=== PATIENT | male | born 1990 | race Hispanic/Latino ===

== ENCOUNTER 2020-06-05 23:57 | Emergency (ER) | payer OTHER ==
[~2020-06-05] VITALS: Ht 175.3 cm; Wt 69.5 kg
[2020-06-06] MEDS ORDERED: SALA1TAB PO (00:06)
[2020-06-06] MEDS ORDERED: KETOROLAC 30 MG/ML 1ML VIAL IV ONE (00:30)
[2020-06-06] MEDS ORDERED: diazePAM 10 MG TAB PO ONE (00:30)
[2020-06-06 00:45] LABS: BASO % 0.2 % (0.0-1.0); EOS # 0.1 10^3/uL (0.0-0.5); EOS % 1.6 % (0.0-3.0); HEMATOCRIT 45.1 % (42.0-52.0); HEMOGLOBIN 15.3 g/dl (13.5-17.5); LYMPH # 0.7 10^3/uL (1.5-5.0); LYMPH % 16.6 % (24.0-44.0); MEAN CORPUSCULAR HEMOGLOBIN 29.8 pg (27.0-33.0); MEAN CORPUSCULAR HGB CONC 33.9 g/dl (32.0-36.5); MEAN CORPUSCULAR VOLUME 87.9 fl (80.0-96.0); MONO # 0.3 10^3/uL (0.0-0.8); NEUTROPHILS # 3.3 10^3/uL (1.5-8.5); NEUTROPHILS % 74.1 % (36.0-66.0); PLATELET COUNT, AUTOMATED 247 10^3/uL (150-450); RED BLOOD COUNT 5.13 10^6/uL (4.30-6.10); WHITE BLOOD COUNT 4.4 10^3/uL (4.0-10.0)
[2020-06-06 00:59] LABS: ALBUMIN 3.9 GM/DL (3.2-5.2); BILIRUBIN,DIRECT 0.1 MG/DL (0.0-0.2); BILIRUBIN,TOTAL 0.3 MG/DL (0.2-1.0); TOTAL PROTEIN 7.4 GM/DL (6.4-8.2)
--- NOTE | 2020-06-06 01:19 | REPVR ---
PROCEDURE INFORMATION: Exam: CT Thoracic Spine Without Contrast Exam date and time: 06/06/2020 12:23 AM Age: 29 years old Clinical indication: Pain in thoracic spine; Without myelpathy or radiculopathy; Additional info: Back pain, recent CA TECHNIQUE: Imaging protocol: Computed tomography images of the thoracic spine without contrast. Radiation optimization: All CT scans at this facility use at least one of these dose optimization techniques: automated exposure control; mA and/or kV adjustment per patient size (includes targeted exams where dose is matched to clinical indication); or iterative reconstruction. COMPARISON: No relevant prior studies available. FINDINGS: Vertebrae: Normal spinal curvature, vertebral body heights, and alignment. No spinal fracture or acute subluxation. Discs/Spinal canal/Neural foramina: No significant disc protrusion. No severe spinal canal stenosis. No significant neural foraminal narrowing. Soft tissues: Unremarkable. IMPRESSION: No acute vertebral fracture/subluxation. Electronically signed by: Cuauhtemoc Bazzi On 06/06/2020 01:19:20 AM
--- NOTE | 2020-06-06 01:20 | REPVR ---
PROCEDURE INFORMATION: Exam: CT Lumbar Spine Without Contrast Exam date and time: 06/06/2020 12:23 AM Age: 29 years old Clinical indication: Low back pain; Additional info: Back pain, recent CA TECHNIQUE: Imaging protocol: Computed tomography images of the lumbar spine without contrast. Radiation optimization: All CT scans at this facility use at least one of these dose optimization techniques: automated exposure control; mA and/or kV adjustment per patient size (includes targeted exams where dose is matched to clinical indication); or iterative reconstruction. COMPARISON: No relevant prior studies available. FINDINGS: Vertebrae: Normal spinal curvature, vertebral body heights, and alignment. No spinal fracture or acute subluxation. Discs/Spinal canal/Neural foramina: Mild diffuse degenerative disc space loss with small disc bulge/protrusions causing up to mild foraminal and spinal stenosis greatest at L3-S1. Soft tissues: Unremarkable. IMPRESSION: No acute vertebral fracture/subluxation. Electronically signed by: Cuauhtemoc Bazzi On 06/06/2020 01:20:08 AM
[2020-06-06 01:42] VITALS: BP 121/72
[2020-06-06] MEDS ORDERED: methocarbamoL 750 MG TAB PO ONE (01:45)
[2020-06-06] MEDS ORDERED: ROBA750T4 PO (01:48)
[2020-06-06] MEDS ORDERED: ASPE4PAD TOP (01:48)
[2020-06-06] MEDS ORDERED: NAPR-837 PO (01:48)
[2020-06-06] MEDS ORDERED: ACETAMINOPHEN 500 MG TAB PO ONE (02:00)
== END 2020-06-06 02:32 | disposition home or self-care (01) ==
LOC: M ED 23:57
DX: M51.26 Other intervertebral disc displacement, lumbar region (principal); M48.07 Spinal stenosis, lumbosacral region; M62.830 Muscle spasm of back; I25.2 Old myocardial infarction; I10 Essential (primary) hypertension; Z85.830 Personal history of malignant neoplasm of bone; Z88.0 Allergy status to penicillin; Z79.899 Other long term (current) drug therapy
CPT/HCPCS: 72128; 72131; 80047; 80076; 81001; 83690; 85025; 96374; 99284; J1885

== ENCOUNTER 2020-06-14 11:37 | Emergency (ER) | payer OTHER ==
[~2020-06-14] VITALS: Ht 175.3 cm; Wt 73.4 kg
[~2020-06-14 11:37] MED LIST: ASPE4PAD TOP; NAPR-837 PO; ROBA750T4 PO; SALA1TAB PO
[2020-06-14 13:00] LABS: BASO % 0.3 % (0.0-1.0); EOS % 1.2 % (0.0-3.0); HEMATOCRIT 46.3 % (42.0-52.0); LYMPH # 0.7 10^3/uL (1.5-5.0); LYMPH % 22.8 % (24.0-44.0); MEAN CORPUSCULAR HEMOGLOBIN 30.5 pg (27.0-33.0); MEAN CORPUSCULAR HGB CONC 34.6 g/dl (32.0-36.5); MEAN CORPUSCULAR VOLUME 88.2 fl (80.0-96.0); MONO # 0.4 10^3/uL (0.0-0.8); MONO % 12.3 % (0.0-5.0); NEUTROPHILS % 63.1 % (36.0-66.0); PLATELET COUNT, AUTOMATED 237 10^3/uL (150-450); RED BLOOD COUNT 5.25 10^6/uL (4.30-6.10); WHITE BLOOD COUNT 3.2 10^3/uL (4.0-10.0)
[2020-06-14] MEDS ORDERED: PROHANCE 279.3MG/ML 15ML VIAL As Ordered ONE (14:04)
[2020-06-14] MEDS ORDERED: KETOROLAC 60MG 2ML VIAL IM ONE (15:15)
--- NOTE | 2020-06-14 15:28 | REPVR ---
PROCEDURE INFORMATION: Exam: MR Lumbar Spine Without and With Contrast. Exam date and time: 06/14/2020 2:21 PM Age: 29 years old Clinical indication: Pain and condition or disease; Other: Mandible cancer; Patient HX: Low back pain, HX cancer of the mandible; Additional info: HX mandible cancer, severe lower bacl pain, CT neg TECHNIQUE: Imaging protocol: Multiplanar magnetic resonance images of the lumbar spine without and with intravenous contrast. Contrast material: PROHANCE; Contrast volume: 14 ml; Contrast route: INTRAVENOUS (IV); COMPARISON: CT Spine, lumbar w/o contrast 06/06/2020 12:52 AM FINDINGS: Vertebrae: Unremarkable. Spinal cord: Normal signal in the distal thoracic cord and conus medullaris. No cord compression. L1-L2: No significant disc disease. No significant spinal canal stenosis. No neural foraminal stenosis. A tiny posterior facet joint effusion is present on the left. L2-L3: No significant disc disease. No significant spinal canal stenosis. No neural foraminal stenosis. L3-L4: No significant disc disease. No significant spinal canal stenosis. No neural foraminal stenosis. A tiny posterior facet joint effusion is present on the left. L4-L5: No significant disc disease. No significant spinal canal stenosis. No neural foraminal stenosis. A tiny posterior facet joint effusion is present on the left. L5-S1: No significant disc disease. No significant spinal canal stenosis. No neural foraminal stenosis. Soft tissues: Unremarkable prevertebral and posterior paraspinal soft tissues. IMPRESSION: Tiny posterior facet joint effusions are seen on the left at L1/L2 and at L3-L5. Otherwise, normal lumbar spine. No evidence of soft tissue or bony metastasis. Electronically signed by: Surendra Venegas On 06/14/2020 15:28:26 PM
--- NOTE | 2020-06-14 15:53 | REPVR ---
PROCEDURE INFORMATION: Exam: MR Thoracic Spine Without and With Contrast Exam date and time: 06/14/2020 2:21 PM Age: 29 years old Clinical indication: Pain and condition or disease; Other: Cancer of mandible; Other: Lower back pain; Patient HX: Low back pain. HX mandible cancer; Additional info: HX of bonce cancer, severe tenderness TECHNIQUE: Imaging protocol: Multiplanar magnetic resonance images of the thoracic spine without and with intravenous contrast. Contrast material: PROHANCE; Contrast volume: 14 ml; Contrast route: INTRAVENOUS (IV); COMPARISON: CT Spine,thoracic w/o contrast 06/06/2020 12:52 AM FINDINGS: Vertebrae: The thoracic spinal vertebral bodies appear normal except for the T12 vertebral body which demonstrates low T1 and T2 signal with diffuse homogeneous enhancement of the marrow post IV contrast. Spinal cord: Normal signal. No cord compression. T1-T2: No significant disc disease. No significant spinal canal stenosis. T2-T3: No significant disc disease. No significant spinal canal stenosis. T3-T4: No significant disc disease. No significant spinal canal stenosis. T4-T5: No significant disc disease. No significant spinal canal stenosis. T5-T6: No significant disc disease. No significant spinal canal stenosis. T6-T7: No significant disc disease. No significant spinal canal stenosis. T7-T8: No significant disc disease. No significant spinal canal stenosis. T8-T9: No significant disc disease. No significant spinal canal stenosis. T9-T10: No significant disc disease. No significant spinal canal stenosis. T10-T11: No significant disc disease. No significant spinal canal stenosis. T11-T12: No significant disc disease. No significant spinal canal stenosis. Soft tissues: A small 1.3 x 1.0 cm high T2 signal mass which does not enhance post IV contrast is seen in the mid-upper pole posterior cortex of the left kidney on frame 6 of series 1401, likely a small Bosniak type I simple cyst. IMPRESSION: 1. The thoracic spinal vertebral bodies appear normal except for the T12 vertebral body which demonstrates low T1 and T2 signal with diffuse homogeneous enhancement of the marrow post IV contrast. This could be a benign intraosseous hemangioma. The CT findings of the T12 vertebral body are not completely diagnostic for a hemangioma but could not exclude a developing hemangioma. A neoplasm such as lymphoma is a possibility although the CT findings are not suggestive of a blastic osseous metastasis. I would recommend a nuclear medicine CT PET study for further evaluation. 2. A small 1.3 x 1.0 cm high T2 signal mass which does not enhance post IV contrast is seen in the mid-upper pole posterior cortex of the left kidney, likely a small Bosniak type I simple cyst. Electronically signed by: Surendra Venegas On 06/14/2020 15:52:42 PM
[2020-06-14] MEDS ORDERED: NORC1TAB7 PO (16:19)
[2020-06-14 16:30] VITALS: BP 147/86
== END 2020-06-14 16:33 | disposition home or self-care (01) ==
LOC: M ED 11:37
DX: S39.92XA Unspecified injury of lower back, initial encounter (principal); W10.8XXA Fall (on) (from) other stairs and steps, initial encounter; Y92.019 Unspecified place in single-family (private) house as the place of occurrence of the external cause; Y93.9 Activity, unspecified; Y99.9 Unspecified external cause status; R93.89 Abnormal findings on diagnostic imaging of other specified body structures; M25.48 Effusion, other site; Z85.830 Personal history of malignant neoplasm of bone; I25.2 Old myocardial infarction; E78.5 Hyperlipidemia, unspecified; I10 Essential (primary) hypertension; Z88.0 Allergy status to penicillin; Z79.899 Other long term (current) drug therapy
CPT/HCPCS: 72157; 72158; 80047; 85025; 96372; 99284; A9576; J1885

== ENCOUNTER 2020-06-19 19:03 | Emergency (ER) | payer OTHER ==
[~2020-06-19] VITALS: Ht 175.3 cm; Wt 72.3 kg
[~2020-06-19 19:03] MED LIST changes: +NORC1TAB7 PO
[2020-06-19] MEDS ORDERED: ROBA750T4 PO (21:29)
[2020-06-19] MEDS ORDERED: PERC5TAB12 PO (21:29)
[2020-06-19] MEDS ORDERED: methocarbamoL 750 MG TAB PO ONE (21:30)
[2020-06-19] MEDS ORDERED: OXYCODONE/APAP 5MG/325MG(BULK FOR ED) 1 TABLET PO ONE (21:30)
[2020-06-19 21:45] VITALS: BP 106/66
== END 2020-06-19 21:57 | disposition home or self-care (01) ==
LOC: M ED 19:03
DX: M54.9 Dorsalgia, unspecified (principal); Z85.830 Personal history of malignant neoplasm of bone; Z88.0 Allergy status to penicillin; Z79.899 Other long term (current) drug therapy

== ENCOUNTER 2020-06-27 10:38 | Emergency (ER) | payer OTHER ==
[~2020-06-27] VITALS: Ht 167.6 cm; Wt 73.2 kg
[~2020-06-27 10:38] MED LIST changes: +PERC5TAB12 PO
[2020-06-27 10:56] VITALS: BP 168/91
[2020-06-27] MEDS ORDERED: PERC5TAB12 PO (11:20)
[2020-06-27] MEDS ORDERED: MIRA3350 PO (11:20)
== END 2020-06-27 11:26 | disposition home or self-care (01) ==
LOC: M ED 10:38
DX: Z76.0 Encounter for issue of repeat prescription (principal); M54.5 Low back pain; C41.1 Malignant neoplasm of mandible; Z88.0 Allergy status to penicillin; Z79.899 Other long term (current) drug therapy

== ENCOUNTER 2020-06-27 19:14 | Emergency (ER) | payer OTHER ==
[~2020-06-27] VITALS: Ht 170.2 cm; Wt 72.2 kg
[~2020-06-27 19:14] MED LIST changes: +MIRA3350 PO
[2020-06-27] MEDS ORDERED: ONDANSETRON 4MG/2ML VIAL IV ONE (20:15)
[2020-06-27] MEDS ORDERED: NS 1,000 ML IV ONE (20:15)
[2020-06-27] MEDS ORDERED: PANTOPRAZOLE 40MG VIAL (C9113 PER 1) IV ONE (20:15)
[2020-06-27] MEDS ORDERED: KETOROLAC 30 MG/ML 1ML VIAL IV ONE (20:15)
[2020-06-27 20:25] LABS: BASO % 0.2 % (0.0-1.0); EOS % 0.6 % (0.0-3.0); HEMATOCRIT 43.8 % (42.0-52.0); LYMPH % 15.3 % (24.0-44.0); MEAN CORPUSCULAR HEMOGLOBIN 29.6 pg (27.0-33.0); MEAN CORPUSCULAR HGB CONC 34.2 g/dl (32.0-36.5); MEAN CORPUSCULAR VOLUME 86.6 fl (80.0-96.0); MONO # 0.5 10^3/uL (0.0-0.8); MONO % 7.7 % (0.0-5.0); NEUTROPHILS # 4.9 10^3/uL (1.5-8.5); NEUTROPHILS % 75.9 % (36.0-66.0); PLATELET COUNT, AUTOMATED 262 10^3/uL (150-450); RED BLOOD COUNT 5.06 10^6/uL (4.30-6.10); WHITE BLOOD COUNT 6.5 10^3/uL (4.0-10.0)
--- NOTE | 2020-06-27 21:05 | REPVR ---
PROCEDURE INFORMATION: Exam: XR Complete Acute Abdomen Series Exam date and time: 06/27/2020 8:44 PM Age: 30 years old Clinical indication: Abdominal pain; Acute TECHNIQUE: Imaging protocol: XR complete acute abdomen series, including 2 or more views of the abdomen and a single view chest. COMPARISON: CR Chest, 2 view PA, Lat 04/07/2020 8:33 PM FINDINGS: Lungs: Normal. No consolidation. Pleural space: Normal. No pneumothorax. Heart/Mediastinum: Normal. No cardiomegaly. Gastrointestinal tract: Increased feces in the ascending and distal sigmoid colon, findings consistent with constipation. Intraperitoneal space: Normal. No free air. Bones/joints: Normal. No acute fracture. Soft tissues: Normal. IMPRESSION: Increased feces in the ascending and distal sigmoid colon, findings consistent with constipation. Electronically signed by: Akshat Abdullahi On 06/27/2020 21:04:54 PM
[2020-06-27 21:07] LABS: ALBUMIN 4.1 GM/DL (3.2-5.2); ALT/SGPT 16 U/L (12-78); BILIRUBIN,DIRECT < 0.1 MG/DL (0.0-0.2); BILIRUBIN,TOTAL 0.4 MG/DL (0.2-1.0); BLOOD UREA NITROGEN 12 MG/DL (7-18); CALCIUM LEVEL 9.1 MG/DL (8.5-10.1); CARBON DIOXIDE LEVEL 29 MEQ/L (21-32); CHLORIDE LEVEL 106 MEQ/L (98-107); CREATININE FOR GFR 0.97 MG/DL (0.70-1.30); GLOMERULAR FILTRATION RATE > 60.0 (>60); GLUCOSE, FASTING 88 MG/DL (70-100); LIPASE 51 U/L (73-393); POTASSIUM SERUM 4.2 MEQ/L (3.5-5.1); SODIUM LEVEL 140 MEQ/L (136-145)
[2020-06-27] MEDS ORDERED: MAGNESIUM CITRATE 300 ML BTL PO ONE (21:15)
[2020-06-27 21:44] VITALS: BP 137/81
== END 2020-06-27 21:53 | disposition home or self-care (01) ==
LOC: M ED 19:14
DX: K59.00 Constipation, unspecified (principal); R10.9 Unspecified abdominal pain; I11.9 Hypertensive heart disease without heart failure; C41.1 Malignant neoplasm of mandible; Z88.0 Allergy status to penicillin; Z79.899 Other long term (current) drug therapy
CPT/HCPCS: 36415; 74021; 80048; 80076; 81001; 83690; 85025; 96361; 96374; 96375; 99284; C9113; J1885; J2405

== ENCOUNTER 2020-07-04 00:03 | Emergency (ER) | payer OTHER ==
[~2020-07-04] VITALS: Ht 175.3 cm; Wt 96.5 kg
[2020-07-04] MEDS ORDERED: PERCOCET 5MG/325MG TAB PO ONE (02:30)
[2020-07-04 03:06] LABS: AMPHETAMINES LEVEL URINE NEGATIVE (NEGATIVE); BARBITURATES URINE NEGATIVE (NEGATIVE); BENZODIAZEPINES URINE NEGATIVE (NEGATIVE); CANNABINOIDS URINE NEGATIVE (NEGATIVE); COCAINE METABOLITE URINE NEGATIVE (NEGATIVE); METHADONE URINE NEGATIVE (NEGATIVE); OPIATES URINE NEGATIVE (NEGATIVE); PHENCYCLIDINE URINE NEGATIVE (NEGATIVE)
--- NOTE | 2020-07-04 04:12 | REPVR ---
PROCEDURE INFORMATION: Exam: XR Complete Acute Abdomen Series Exam date and time: 07/04/2020 2:55 AM Age: 30 years old Clinical indication: Other: Abdominal pain/constipation TECHNIQUE: Imaging protocol: XR complete acute abdomen series, including 2 or more views of the abdomen and a single view chest. COMPARISON: CR Abdomen,Flat Upright,PA CHEST 06/27/2020 8:26 PM FINDINGS: Tubes, catheters and devices: Surgical clips are noted on the right side of the neck. Lungs: The lungs are clear. Pleural space: No pleural effusions or pneumothorax identified. Heart/Mediastinum: The cardiomediastinal silhouette is within normal size limits. Gastrointestinal tract: There is gaseous distention of the transverse colon. There are 2 fluid levels in the right upper quadrant which are probably in the right and transverse colon and there is a fluid level in the left colon. There is less gaseous distention of the bowel than on the prior exam. There is a moderate amount of stool, less than on the prior exam. There is no significant small bowel dilation. Intraperitoneal space: There is no free intraperitoneal air. Bones/joints: The bones appear unremarkable. Soft tissues: Normal. IMPRESSION: 1. No evidence of bowel obstruction. A few nonspecific fluid levels in the colon. 2. Less gaseous distention of the colon and less stool than on the prior exam. Electronically signed by: Maday Brunner On 07/04/2020 04:12:24 AM
[2020-07-04] MEDS ORDERED: SENO8.6T10 PO (05:19)
[2020-07-04] MEDS ORDERED: PERC5TAB12 PO (05:19)
[2020-07-04] MEDS ORDERED: GOLYLQ PO (05:19)
[2020-07-04 05:50] VITALS: BP 132/70
== END 2020-07-04 05:51 | disposition home or self-care (01) ==
LOC: M ED 00:03
DX: K59.00 Constipation, unspecified (principal); F17.200 Nicotine dependence, unspecified, uncomplicated; C08.9 Malignant neoplasm of major salivary gland, unspecified; Z79.891 Long term (current) use of opiate analgesic; Z79.899 Other long term (current) drug therapy; Z88.0 Allergy status to penicillin

== ENCOUNTER 2020-08-26 21:29 | Emergency (ER) | payer OTHER ==
[~2020-08-26] VITALS: Ht 170.2 cm; Wt 62.7 kg
[~2020-08-26 21:29] MED LIST changes: +GOLYLQ PO; +SENO8.6T10 PO
--- NOTE | 2020-08-27 00:54 | REPVR ---
PROCEDURE INFORMATION: Exam: XR Pelvis Exam date and time: 08/27/2020 12:49 AM Age: 30 years old Clinical indication: Other: RT hip pain; Additional info: Right hip pain, CA spinal, R/O [place] mets TECHNIQUE: Imaging protocol: XR pelvis. Views: 1 or 2 view. COMPARISON: No relevant prior studies available. FINDINGS: Bones/joints: Symphysis and sacroiliac joints are aligned normally. Normal hip joint alignment. No obturator ring fracture. No acute fracture or bone lesion. Hip joint spaces are well-maintained. Soft tissues: No soft tissue asymmetry. Other findings: No abnormal calcification or mass. IMPRESSION: Unremarkable AP radiograph of the pelvis. No destructive or blastic osseous lesion and no articular abnormality of the hip. Electronically signed by: Boy Landon On 08/27/2020 00:54:44 AM
--- NOTE | 2020-08-27 00:55 | REPVR ---
PROCEDURE INFORMATION: Exam: XR Right Hip with Pelvis when Performed Exam date and time: 08/27/2020 12:49 AM Age: 30 years old Clinical indication: Other: RT hip pain; Additional info: Right hip pain, CA spinal, R/O [place] met[place] TECHNIQUE: Imaging protocol: XR Right hip with pelvis when performed. Views: 2 or 3 views. COMPARISON: No relevant prior studies available. FINDINGS: Bones/joints: Bones are aligned normally. No acute fracture. No concerning osseous lesion. No evidence of femoral head osteonecrosis. Hip joint space is well-maintained for age. Imaged portion of the SI joint is unremarkable. Soft tissues: No focal soft tissue abnormality. IMPRESSION: Unremarkable radiographic series of the hip. No radiographic evidence of an osseous metastatic lesion or evidence of hip arthropathy Electronically signed by: Boy Landon On 08/27/2020 00:55:22 AM
[2020-08-27] MEDS: PERCOCET 5MG/325MG TAB PO ONE ×2 (01:19→01:21)
[2020-08-27] MEDS ORDERED: traMADol 50 MG TAB PO ONE ×2 (01:30→02:00)
[2020-08-27] MEDS ORDERED: TRAM50TA2 PO (01:42)
[2020-08-27 01:55] VITALS: BP 121/77
== END 2020-08-27 01:57 | disposition home or self-care (01) ==
LOC: M ED 21:29
DX: G89.29 Other chronic pain (principal); M54.5 Low back pain; I10 Essential (primary) hypertension; Z88.0 Allergy status to penicillin; C41.2 Malignant neoplasm of vertebral column; I25.2 Old myocardial infarction; Z79.899 Other long term (current) drug therapy; Z79.891 Long term (current) use of opiate analgesic

== ENCOUNTER 2020-09-01 17:23 | Inpatient (IN) | payer OTHER ==
[~2020-09-01] VITALS: Ht 170.2 cm; Wt 65.5 kg
[~2020-09-01 17:23] MED LIST changes: +TRAM50TA2 PO
[2020-09-01] MEDS ORDERED: NS 1,000 ML IV SCH ×2 (18:09→21:14)
[2020-09-01] MEDS ORDERED: MORPHINE 4 MG/ML 1ML VIAL/SYRINGE (J2270) IV ONE (18:15)
[2020-09-01] MEDS ORDERED: ONDANSETRON 4MG/2ML VIAL IV ONE (18:15)
[2020-09-01 19:09] LABS: BASO % 0.4 % (0.0-1.0); EOS % 0.4 % (0.0-3.0); LYMPH # 0.3 10^3/uL (1.5-5.0); LYMPH % 6.4 % (24.0-44.0); MEAN CORPUSCULAR HEMOGLOBIN 30.7 pg (27.0-33.0); MEAN CORPUSCULAR HGB CONC 33.3 g/dl (32.0-36.5); MEAN CORPUSCULAR VOLUME 92.1 fl (80.0-96.0); MONO # 0.4 10^3/uL (0.0-0.8); MONO % 9.5 % (0.0-5.0); NEUTROPHILS # 3.6 10^3/uL (1.5-8.5); NEUTROPHILS % 79.3 % (36.0-66.0); PLATELET COUNT, AUTOMATED 121 10^3/uL (150-450); RED BLOOD COUNT 3.91 10^6/uL (4.30-6.10); WHITE BLOOD COUNT 4.5 10^3/uL (4.0-10.0)
[2020-09-01] MEDS: GASTROGRAFIN SOLUTION 30ML PO SCH ×2 (19:26→20:03)
[2020-09-01 19:45] LABS: ALBUMIN 3.6 GM/DL (3.2-5.2); ALT/SGPT 44 U/L (12-78); BILIRUBIN,DIRECT < 0.1 MG/DL (0.0-0.2); BILIRUBIN,TOTAL 0.3 MG/DL (0.2-1.0); BLOOD UREA NITROGEN 12 MG/DL (7-18); CALCIUM LEVEL 9.5 MG/DL (8.5-10.1); CARBON DIOXIDE LEVEL 28 MEQ/L (21-32); CHLORIDE LEVEL 105 MEQ/L (98-107); CREATININE FOR GFR 0.84 MG/DL (0.70-1.30); GLOMERULAR FILTRATION RATE > 60.0 (>60); GLUCOSE, FASTING 83 MG/DL (70-100); LIPASE 60 U/L (73-393); SODIUM LEVEL 139 MEQ/L (136-145); TOTAL PROTEIN 6.6 GM/DL (6.4-8.2)
[2020-09-01] MEDS ORDERED: ISOVUE-370 76% 100ML VIAL As Ordered ONE (20:16)
--- NOTE | 2020-09-01 20:53 | REPVR ---
PROCEDURE INFORMATION: Exam: CT Abdomen And Pelvis With Contrast Exam date and time: 09/01/2020 8:21 PM Age: 30 years old Clinical indication: Abdominal pain; Additional info: Llq/suprapubic pain TECHNIQUE: Imaging protocol: Computed tomography of the abdomen and pelvis with intravenous contrast. Radiation optimization: All CT scans at this facility use at least one of these dose optimization techniques: automated exposure control; mA and/or kV adjustment per patient size (includes targeted exams where dose is matched to clinical indication); or iterative reconstruction. Contrast material: ISOVUE 370; Contrast volume: 100 ml; Contrast route: INTRAVENOUS (IV); COMPARISON: CR Hip, Ap,Lat RIGHT 08/27/2020 12:38 AM FINDINGS: Liver: Multiple hypoattenuating nodules demonstrated throughout the liver, the largest in the inferior aspect of the right hepatic lobe measuring up to 3.1 cm. All measure soft tissue density and are concerning for metastatic disease. Gallbladder and bile ducts: Normal. No calcified stones. No ductal dilation. Pancreas: Normal. No ductal dilation. Spleen: Normal. No splenomegaly. Adrenal glands: Normal. No mass. Kidneys and ureters: 9 mm simple cyst left kidney. Stomach and bowel: There is increased feces throughout the colon consistent with constipation. Multiple dilated loops of small bowel demonstrated concerning for small bowel obstruction. Appendix: No evidence of appendicitis. Intraperitoneal space: Unremarkable. No free air. No significant fluid collection. Vasculature: Unremarkable. No abdominal aortic aneurysm. Lymph nodes: Unremarkable. No enlarged lymph nodes. Urinary bladder: Unremarkable as visualized. Reproductive: Unremarkable as visualized. Bones/joints: Unremarkable. No acute fracture. Soft tissues: Unremarkable. IMPRESSION: 1. Multiple hypoattenuating nodules demonstrated throughout the liver, the largest in the inferior aspect of the right hepatic lobe measuring up to 3.1 cm. All measure soft tissue density and are concerning for metastatic disease. 2. There is increased feces throughout the colon consistent with constipation. 3. Multiple dilated loops of small bowel demonstrated concerning for small bowel obstruction. 4. 9 mm simple cyst left kidney. COMMENTS: Consistent with the [employer] [place] [employer]'s Incidental Findings Committee white paper (J Am John Radiol 2018): Any incidental renal lesion less than 1 cm or classified as too small to characterize, or any incidental cystic renal lesion characterized as simple-appearing, is likely benign. No follow-up imaging is recommended for these lesions per consensus recommendations based on imaging criteria. Electronically signed by: Akshat Abdullahi On 09/01/2020 20:52:57 PM
[2020-09-01] MEDS: ENOXAPARIN 40MG/0.4ML SYRINGE (J1650 PER 10MG) SC SCH (21:00)
[2020-09-01] MEDS ORDERED: TRAM50TA2 PO (21:33)
[2020-09-01] MEDS ORDERED: CYCL-707 PO (21:34)
[2020-09-01] MEDS ORDERED: ASPI325T53 PO (21:36)
[2020-09-01] MEDS ORDERED: ACET-897 PO (21:36)
[2020-09-01] MEDS ORDERED: PATIENT COMMENT (21:37)
--- NOTE | 2020-09-01 22:06 | HPEPDOC ---
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 He reports vomiting this morning after attempting to eat breakfast. Passing small amounts of gas. Last BM was 24 hours prior without blood. Patient denies chest pain, SOB, palpitations, subjective fevers or chills. 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 CT abdo pelvis showing SBO, along with evidence for hepatic metastases, largest nodule 3.1 cm in diam. PAST MEDICAL HISTORY: metastatic salivary gland tumor PAST SURGICAL HISTORY: R salivary gland tumor resection SOCIAL HISTORY: non smoker, non drinker, denies illicit drug use FAMILY HISTORY: reviewed with patient, no history ALLERGIES: Please see below. REVIEW OF SYSTEMS: 10 point ROS completed, negative apart from positives noted in HPI. HOME MEDICATIONS: Please see below. PHYSICAL EXAMINATION: VITAL SIGNS: please see below General: NAD, comfortable HEENT: PERRLA, EOMI, sclerae clear Neck: supple, normal ROM, no JVD Respiratory: lungs CTAB, no wheeze, no rales, no crackles CVS: RRR, normal S1, S2, no murmurs Abdo: firm, generalized pain to palpation. No organomegaly. Extremities: no edema, pulses 2+ MSK: no joint deformities, normal ROM Neuro: no focal neuro deficits, moving all 4 extremities, CN2-12 intact. Strength 5/5 in all 4 extremities. No nystagmus. Psych: calm, cooperative, AAO x 3 LABORATORY DATA: See below. IMAGING: CT abdo pelvis with contrast (09/01/20): 1. Multiple hypoattenuating nodules demonstrated throughout the liver, the largest in the inferior aspect of the right hepatic lobe measuring up to 3.1 cm. All measure soft tissue density and are concerning for metastatic disease. 2. There is increased feces throughout the colon consistent with constipation. 3. Multiple dilated loops of small bowel demonstrated concerning for small bowel obstruction. 4. 9 mm simple cyst left kidney. MICROBIOLOGY: Please see below. ASSESSMENT: 30 yo M with a hx of metastatic R salivary gland tumor, admitted for management of SBO. General srugery was consulted from ED (Dr. Clarke), decision to defer NG tube at this time. . PLAN: #SBO - seen on CT abdo - passing small gas, last BM 24 hours ago. - in context of chronic tramadol use for low back pain 2/2 mets - Defer NGT per Dr. Clarke. - NPO, ice chips ok - will give dulcolax suppository - serial abdo exams - check LA in am. #R salivary gland tumor - s/p resection 1 year ago - undergoing chemo and radiation #Low back pain 2/2 metastatic disease - takes tramadol 50 mg q4h prn for pain, will order at q8h at this time, titrate up as necessary - tylenol - flexeril DVT ppx: lovenox Dispo: admission expected to last > 2 midnights. Vital Signs Vital Signs Date Time Temp Pulse Resp B/P (MAP) Pulse Ox O2 Delivery O2 Flow Rate FiO2 09/01/20 19:30 97.9 115 18 128/90 100 Room Air Laboratory Data Labs 24H Laboratory Tests 2 09/01/20 18:57: Immature Granulocyte % (Auto) 4.0H, Neutrophils (%) (Auto) 79.3H, Lymphocytes (%) (Auto) 6.4L, Monocytes (%) (Auto) 9.5H, Eosinophils (%) (Auto) 0.4, Basophils (%) (Auto) 0.4, Neutrophils # (Auto) 3.6, Lymphocytes # (Auto) 0.3L, Monocytes # (Auto) 0.4, Eosinophils # (Auto) 0.0, Basophils # (Auto) 0.0, Nucleated Red Blood Cells % (auto) 0.0, Urine Color STRAW, Urine Appearance CLEAR, Urine pH 8.0, Urine Specific [place] 1.002, Urine Protein NEGATIVE, Urine Glucose (UA) NEGATIVE, Urine Ketones NEGATIVE, Urine Blood NEGATIVE, Urine Nitrite NEGATIVE, Urine Bilirubin NEGATIVE, Urine Urobilinogen 0.2, Urine Leuk ocyte Esterase NEGATIVE, Urine WBC (Auto) 0, Urine RBC (Auto) 0, Urine Hyaline Casts (Auto) 0, Urine Bacteria (Auto) NEGATIVE, Urine Squamous Epithelial Cells 0, Urine Sperm (Auto) , Anion Gap 6L, Glomerular Filtration Rate > 60.0, Calcium Level 9.5, Total Bilirubin 0.3, Direct Bilirubin < 0.1, Aspartate Amino Transf (AST/SGOT) 50H, Alanine Aminotransferase (ALT/SGPT) 44, Alkaline Phosphatase 67, Total Protein 6.6, Albumin 3.6, Albumin/Globulin Ratio 1.2, Lipase 60L 09/01/20 21:33: CBC/BMP Laboratory Tests 09/01/20 18:57 Home Medications Scheduled PRN Acetaminophen (Tylenol Extra Strength) 500 Mg Tablet, 1,000 MG PO Q6H PRN for PAIN Aspirin (Aspirin) 325 Mg Tablet, 650 MG PO Q6H PRN for PAIN Cyclobenzaprine HCl (Cyclobenzaprine HCl) 10 Mg Tablet, 10 MG PO TID PRN for MUSCLE SPASMS Tramadol HCl (Tramadol HCl) 50 Mg Tablet, 50 MG PO Q4H PRN for PAIN Miscellaneous Medications [Patient Comment] MED REC COMPLETED VIA EXTERNAL MED HISTORY AND PHONE CALL TO SIGNIFICANT OTHER. Allergies Coded Allergies: Penicillins (Verified Allergy, Intermediate, [facility], 06/27/20) CUAUHTEMOC KOO MD Sep 01, 2020 22:06
[2020-09-01 22:18] LABS: RSV AMPLIFICATION NEGATIVE (NEGATIVE)
[2020-09-01] MEDS ORDERED: ACETAMINOPHEN 500 MG TAB PO PRN (22:30)
[2020-09-01] MEDS ORDERED: BISACODYL 5 MG TAB PO ONE (23:00)
[2020-09-01] MEDS ORDERED: MAGNESIUM CITRATE 300 ML BTL PO ONE (23:00)
[2020-09-02 00:35] VITALS: BP 133/91
[2020-09-02] MEDS: traMADol 50 MG TAB PO PRN ×3 (01:59→22:39)
[2020-09-02] MEDS: CYCLOBENZAPRINE 10MG TABLET PO PRN ×3 (02:10→22:38)
[2020-09-02] MEDS ORDERED: MORPHINE 2 MG/ML 1ML VIAL (J2270) IV ONE (03:00)
[2020-09-02] MEDS ORDERED: NS 1,000 ML IV SCH (05:30)
[2020-09-02] MEDS: clonazePAM 0.5 MG TAB PO PRN (05:32)
[2020-09-02 06:00] VITALS: BP 132/90
--- NOTE | 2020-09-02 08:10 | REP ---
INDICATION: constipation, sbo COMPARISON: None. TECHNIQUE: Supine view of the abdomen and pelvis. FINDINGS: Bowel gas pattern is relatively nonspecific and without evidence for obstruction or perforation. Contrast material identified within the colon consistent with recent CT exam. No again a megaly. No obvious foreign body. Skeletal structures are intact. IMPRESSION: Nonspecific bowel gas pattern. <Electronically signed by Rajiv Camilo > 09/02/20 [id number]
[2020-09-02] MEDS ORDERED: FLEET ENEMA PR ONE (08:30)
[2020-09-02] MEDS ORDERED: NS 1,000 ML IV ONE ×2 (08:45→17:45)
[2020-09-02] MEDS ORDERED: D5W/0.45% SODIUM CHLORIDE 1,000 ML IV SCH (08:45)
[2020-09-02] MEDS ORDERED: MIRALAX *UNIT DOSE* 17GM PACKET PO SCH (09:00)
[2020-09-02] MEDS ORDERED: KETOROLAC 30 MG/ML 1ML VIAL IV ONE ×2 (10:15→17:45)
[2020-09-02 10:35] LABS: HEMATOCRIT 34.1 % (42.0-52.0); HEMOGLOBIN 11.2 g/dl (13.5-17.5); MEAN CORPUSCULAR HEMOGLOBIN 30.4 pg (27.0-33.0); MEAN CORPUSCULAR HGB CONC 32.8 g/dl (32.0-36.5); MEAN CORPUSCULAR VOLUME 92.4 fl (80.0-96.0); RED BLOOD COUNT 3.69 10^6/uL (4.30-6.10); WHITE BLOOD COUNT 3.9 10^3/uL (4.0-10.0)
[2020-09-02 10:36] LABS: PLATELET COUNT, AUTOMATED 98 10^3/uL (150-450)
[2020-09-02 11:09] LABS: ALBUMIN 3.4 GM/DL (3.2-5.2); ALT/SGPT 39 U/L (12-78); BILIRUBIN,TOTAL 0.3 MG/DL (0.2-1.0); BLOOD UREA NITROGEN 10 MG/DL (7-18); CALCIUM LEVEL 8.8 MG/DL (8.5-10.1); CARBON DIOXIDE LEVEL 26 MEQ/L (21-32); CHLORIDE LEVEL 110 MEQ/L (98-107); CREATININE FOR GFR 0.79 MG/DL (0.70-1.30); GLOMERULAR FILTRATION RATE > 60.0 (>60); GLUCOSE, FASTING 109 MG/DL (70-100); POTASSIUM SERUM 4.7 MEQ/L (3.5-5.1); SODIUM LEVEL 140 MEQ/L (136-145); TOTAL PROTEIN 6.2 GM/DL (6.4-8.2)
--- NOTE | 2020-09-02 11:12 | IPNPDOC ---
Date Seen The patient was seen on 09/02/20. Progress Note S: c/o lower back pain 5/10 pain scale w/o bl le weakness, saddle anesthesia. said he completed his radiation treatment for spine mets. still no bowel movement despite mg citrate yesterday, given enema and miralax today. tolerating liquids w/o n/v, and passing flatus. 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4L, Monocytes (%) (Auto) 9.5H, Eosinophils (%) (Auto) 0.4, Basophils (%) (Auto) 0.4, Neutrophils # (Auto) 3.6, Lymphocytes # (Auto) 0.3L, Monocytes # (Auto) 0.4, Eosinophils # (Auto) 0.0, Basophils # (Auto) 0.0, Nucleated Red Blood Cells % (auto) 0.0, Urine Color STRAW, Urine Appearance CLEAR, Urine pH 8.0, Urine Specific [place] 1.002, Urine Protein NEGATIVE, Urine Glucose (UA) NEGATIVE, Urine Ketones NEGATIVE, Urine Blood NEGATIVE, Urine Nitrite NEGATIVE, Urine Bilirubin NEGATIVE, Urine Urobilinogen 0.2, Urine Leukocyte Esterase NEGATIVE, Urine WBC (Auto) 0, Urine RBC (Auto) 0, Urine Hyaline Casts (Auto) 0, Urine Bacteria (Auto) NEGATIVE, Urine Squamous Epithelial Cells 0, Urine Sperm (Auto) , Anion Gap 6L, Glomerular Filtration Rate > 60.0, Calcium Level 9.5, Total Bilirubin 0.3, Direct Bilirubin < 0.1, Aspartate Amino Transf (AST/SGOT) 50H, Alanine Aminotransferase (ALT/SGPT) 44, Alkaline Phosphatase 67, Total Protein 6.6, Albumin 3.6, Albumin/Globulin Ratio 1.2, Lipase 60L 09/01/20 21:33: Coronavirus (COVID-19)(PCR) NEGATIVE, Influenza Type A (RT-PCR) NEGATIVE, Influenza Type B (RT-PCR) NEGATIVE, Respiratory Syncytial Virus (PCR) NEGATIVE 09/02/20 10:08: Nucleated Red Blood Cells % (auto) 0.0, Immature Platelet Fraction 2.3 CBC/BMP Laboratory Tests 09/01/20 18:57 09/02/20 10:08 RANDAL WU MD Sep 02, 2020 11:05
[2020-09-02 14:00] VITALS: BP 116/81
[2020-09-02] MEDS ORDERED: HYDROMORPHONE HCL 0.5 MG/ 0.5 ML SYRINGE (J1170 PER 1) IV ONE (17:30)
[2020-09-02] MEDS: ENOXAPARIN 40MG/0.4ML SYRINGE (J1650 PER 10MG) SC SCH (21:00)
[2020-09-02 22:00] VITALS: BP 119/83
[2020-09-03] MEDS ORDERED: MORPHINE 2 MG/ML 1ML VIAL (J2270) IV ONE (00:15)
[2020-09-03] MEDS ORDERED: MORPHINE 2 MG/ML 1ML VIAL (J2270) IV PRN (01:00)
[2020-09-03] MEDS ORDERED: HYDROmorphone HCL 2 MG/ML 1ML VIAL (J1170) IV PRN (03:15)
[2020-09-03 06:00] VITALS: BP 135/95
[2020-09-03] MEDS ORDERED: MORPHINE 15 MG SA TAB PO SCH ×2 (06:00→09:00)
[2020-09-03] MEDS: clonazePAM 0.5 MG TAB PO PRN (06:38)
[2020-09-03] MEDS ORDERED: MORPHINE 30 MG TAB **MSIR PO PRN (08:00)
[2020-09-03] MEDS ORDERED: FLEET ENEMA PR PRN (08:00)
[2020-09-03] MEDS ORDERED: MOM 30ML SUSPENSION UDC PO PRN (08:00)
[2020-09-03] MEDS ORDERED: MORPHINE 4 MG/ML 1ML VIAL/SYRINGE (J2270) IV PRN (08:00)
[2020-09-03] MEDS: MOM 30ML SUSPENSION UDC PO SCH ×2 (08:00→12:00)
[2020-09-03] MEDS ORDERED: SENOKOT S TAB PO SCH (09:00)
[2020-09-03] MEDS ORDERED: MIRALAX *UNIT DOSE* 17GM PACKET PO SCH (09:00)
[2020-09-03] MEDS ORDERED: ALVIMOPAN 12 MG CAPSULE (ENTEREG) PO SCH (09:00)
[2020-09-03] MEDS ORDERED: LACTULOSE 20 GM/30 ML SYRUP UD PO SCH (09:00)
--- NOTE | 2020-09-03 09:45 | CR.PDOC ---
General Surgery Consultation Date of Consultation 09/02/20 History and Physical CONSULT REPORT FOR: hospitalist service REASON FOR CONSULTATION: constipation, ?bowel obstruction HISTORY OF PRESENT ILLNESS: I was aksed to consult on Mr. Croft who is currently admitted in the hospital from overnight when he presented with complaints of. 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 He reports vomiting this morning after attempting to eat breakfast. Passing small amounts of gas. Last BM was 24 hours prior without blood. Patient denies chest pain, SOB, palpitations, subjective fevers or chills. 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 CT abdo pelvis showing SBO, along with evidence for hepatic metastases, largest nodule 3.1 cm in diam. PAST MEDICAL HISTORY: metastatic salivary gland tumor PAST SURGICAL HISTORY: R salivary gland tumor resection SOCIAL HISTORY: non smoker, non drinker, denies illicit drug use FAMILY HISTORY: reviewed with patient, no history ALLERGIES: Please see below. REVIEW OF SYSTEMS: 10 point ROS completed, negative apart from positives noted in HPI. HOME MEDICATIONS: Please see below. PHYSICAL EXAMINATION: VITAL SIGNS: please see below General: NAD, comfortable HEENT: PERRLA, EOMI, sclerae clear Neck: supple, normal ROM, no JVD Respiratory: lungs CTAB, no wheeze, no rales, no crackles CVS: RRR, normal S1, S2, no murmurs Abdo: firm, generalized pain to palpation. No organomegaly. Extremities: no edema, pulses 2+ MSK: no joint deformities, normal ROM Neuro: no focal neuro deficits, moving all 4 extremities, CN2-12 intact. Strength 5/5 in all 4 extremities. No nystagmus. Psych: calm, cooperative, AAO x 3 LABORATORY DATA: See below. IMAGING: CT abdo pelvis with contrast (09/01/20): 1. Multiple hypoattenuating nodules demonstrated throughout the liver, the largest in the inferior aspect of the right hepatic lobe measuring up to 3.1 cm. All measure soft tissue density and are concerning for metastatic disease. 2. There is increased feces throughout the colon consistent with constipation. 3. Multiple dilated loops of small bowel demonstrated concerning for small bowel obstruction. 4. 9 mm simple cyst left kidney. MICROBIOLOGY: Please see below. ASSESSMENT: 30 yo M with a hx of metastatic R salivary gland tumor, admitted for management of SBO. General srugery was consulted from ED (Dr. Clarke), decision to defer NG tube at this time. . PLAN: #SBO - seen on CT abdo - passing small gas, last BM 24 hours ago. - in context of chronic tramadol use for low back pain 2/2 mets - Defer NGT per Dr. Clarke. - NPO, ice chips ok - will give dulcolax suppository - serial abdo exams - check LA in am. #R salivary gland tumor - s/p resection 1 year ago - undergoing chemo and radiation #Low back pain 2/2 metastatic disease - takes tramadol 50 mg q4h prn for pain, will order at q8h at this time, titrate up as necessary - tylenol - flexeril DVT ppx: lovenox Dispo: admission expected to last > 2 midnights. PAST MEDICAL HISTORY: 1. . PAST SURGICAL HISTORY: INCLUDES: 1. . PREVIOUS ANESTHESIA REACTIONS: ALLERGIES: Please see below. FAMILY HISTORY: . HOME MEDICATIONS: Please see below. REVIEW OF SYSTEMS: GENERAL: [Denies chills, reports weight gain, reports feeling febrile yesterday]. HEENT: [Denies blurred vision and double vision. Denies ear symptoms. Denies hoarseness]. NECK: Denies any neck pain]. CARDIOVASCULAR: [Denies chest pain and palpitations]. MUSCULOSKELETAL: [Denies arthralgias, back pain and thrombophlebitis]. SKIN: [Denies rash]. NEUROLOGIC: [Denies headache, stroke and transient ischemic attack]. PSYCHIATRIC: [Denies anxiety and depression]. ENDOCRINE: [Denies thyroid disease]. HEMATOLOGY/ONCOLOGY: [Denies bleeding or clotting disorder]. HEART: [Denies any chest pains, palpitations, paroxysmal dyspnea, orthopnea]. PULMONARY: [Denies chronic cough, dyspnea and wheezing]. GASTROINTESTINAL: [Denies rectal bleeding, family history of colon cancer, constipation, diarrhea, dysphagia, heartburn and jaundice]. GENITOURINARY: [Denies dysuria, frequency, hematuria and nocturia]. ENDOCRINE: [Denies polydipsia, polyphagia, polyuria, heat or cold intolerance]. INFECTIOUS: [Denies any recent upper respiratory tract infection, UTI, need for use of antibiotics]. NUTRITION: [Reports good appetite]. PHYSICAL EXAMINATION: VITALS SIGNS: Please see below. GENERAL APPEARANCE:[Patient seen, laying in bed, awake, alert, and oriented. Comfortable, in no acute distress]. SKIN: [Warm and moist]. HEENT: [Normocephalic, atraumatic. [place] palpebral conjunctiva, anicteric sclerae. Lips and mucosa appear moist]. NECK: [Supple, no thyromegaly. No obvious jugular venous distention]. LUNGS: [Clear to auscultation bilaterally. No wheezing appreciated]. HEART: [No chest wall abnormalities. Regular rate and rhythm with no murmurs appreciated]. ABDOMEN: Abdomen is slightly protuberant, mildly distended, soft, no focal area of tenderness, mildly uncomfortable on deep palpation around lower abdomen, no rebound or guarding. No umbilical or groin herniation. Rectal Exam: small noninflamed external hemorrhoid, good/tight sphincter tone, good squeeze. EXTREMITIES: [Extremities have no deformities. No edema identified] ANCILLARIES: . LABORATORY DATA: Please see below. IMAGING STUDIES: . IMPRESSION AND PLAN: Metastatic salivary gland malignancy. This appears to be metastatic to the bone also to the liver. He has undergone radiation therapy to the metastasis to the bone. He is aware of the metastasis to the liver but has not had any recent chemotherapy he set aside from the one that he received in [place] in March of last year following what appears to be radical neck dissection for salivary gland cancer. His main complaint is back pain. He at home is being treated with tramadol. He has just been started on narcotics. Suggest physical therapy as well as consult with the pain service. I don't think he has a bowel obstruction. He does have may be fecal impaction with a large stool: On the right side of the colon which may be back and up to the small bowel to the imaging shows some mildly dilated at best small bowel in the proximal area not at the distal area. His main complaint of abdominal pain seems to be in trying to get rid of the stools with lower abdominal crampy abdominal pain. He has been tried on magnesium citrate, MiraLAX as well as fleets enema with only minimal results. He is passing flatus and does not look to be very or overtly distended. I will start him on lactulose and scheduled doses, high-fiber diet. Have instructed him to drink lots of liquids as distal column on the proximal area is already solidified will take some time for it to be moved and expelled. Putting in the narcotics unfortunately would slow this down. I'll add some entereg to counter the ileus effect of the narcotics. Examine his rectal area and he still has a good squeeze I don't think that the back metastasis is causing problems with anal sphincter complex and he does not need to be dye forwarded. I also told him he does not need any surgery for the constipation or perceived bowel obstruction. He will need to follow-up with his oncologist. Is not clear to me whether there is somebody loose overall looking after him in terms of his cancer but overall seems to be poor prognosis. No surgical follow-up is needed. Vital Signs Vital Signs Date Time Temp Pulse Resp B/P (MAP) Pulse Ox O2 Delivery O2 Flow Rate FiO2 09/03/20 06:00 98.1 107 18 135/95 (108) 100 Room Air I&Os I&O- Last 24 Hours up to 6 AM 09/03/20 06:00 Intake Total 1180 ml Output Total 2925 ml Balance -1745 ml Laboratory Data Labs 24H Laboratory Tests 2 09/02/20 10:08: Nucleated Red Blood Cells % (auto) 0.0, Immature Platelet Fraction 2.3, Anion Gap 4L, Glomerular Filtration Rate > 60.0, Calcium Level 8.8, Total Bilirubin 0.3, Aspartate Amino Transf (AST/SGOT) 50H, Alanine Aminotransferase (ALT/SGPT) 39, Alkaline Phosphatase 65, Total Protein 6.2L, Albumin 3.4, Albumin/Globulin Ratio 1.2 CBC/BMP Laboratory Tests 09/02/20 10:08 Home Medications Scheduled PRN Acetaminophen (Tylenol Extra Strength) 500 Mg Tablet, 1,000 MG PO Q6H PRN for PAIN, (Reported) Aspirin (Aspirin) 325 Mg Tablet, 650 MG PO Q6H PRN for PAIN, (Reported) Cyclobenzaprine HCl (Cyclobenzaprine HCl) 10 Mg Tablet, 10 MG PO TID PRN for MUSCLE SPASMS, (Reported) Tramadol HCl (Tramadol HCl) 50 Mg Tablet, 50 MG PO Q4H PRN for PAIN, (Reported) Miscellaneous Medications [Patient Comment] , (Reported) MED REC COMPLETED VIA EXTERNAL MED HISTORY AND PHONE CALL TO SIGNIFICANT OTHER. Allergies Coded Allergies: Penicillins (Verified Allergy, Intermediate, RASH & SWELLING, 06/27/20) GRAZYNA CLARKE MD Sep 03, 2020 08:13
[2020-09-03] MEDS ORDERED: ALVI12CA PO ×2 (11:08→12:42)
[2020-09-03] MEDS ORDERED: MS C30TA6 PO ×2 (11:08→12:44)
[2020-09-03] MEDS ORDERED: MOM30SS2 PO ×2 (11:08→12:42)
[2020-09-03] MEDS ORDERED: MORP15TA2 PO ×2 (11:08→12:44)
[2020-09-03] MEDS ORDERED: PEG1POW PO ×2 (11:08→12:42)
[2020-09-03] MEDS ORDERED: SENN-52 PO ×2 (11:08→12:42)
[2020-09-03] MEDS ORDERED: LACT20EL PO ×2 (11:08→12:42)
[2020-09-03] MEDS ORDERED: CYCL-707 PO (11:55)
--- NOTE | 2020-09-04 14:08 | DS.PDOC ---
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 ALLERGIES: Please see below. DISCHARGE INSTRUCTIONS: Primary care physician follow-up appointment within 5 days to address pain issues Medical oncology, radiation oncology follow-up within 1 week to address persistent liver metastasis and back pain due to spinal metastasis for palliative care HOSPITAL COURSE: 30 y/o w metastatic salivary gland ca to spine, liver presented w c/o back pain found on CT abdomen and pelvis to have Small bowel obstruction, constipation and liver mets. Partial small bowel obstruction -General surgery, Dr. Clarke was consulted and did not recommend nasogastric tube placement since the patient was not nauseated and vomiting. -He was initially Nothing by mouth with intravenous fluids. -He was given magnesium citrate 150 ML's. MiraLAX 1 packet daily and a fleets enema -He was tried on entereg, while his diet was advanced which she tolerated well without nausea or vomiting -Repeat abdominal film showed no bowel obstruction -Gen. surgery recommended continuing bowel regimen as outpatient metastatic salivary gland cancer to spine, liver -outpt chemo/radiation -Immediate follow-up with his medical oncologist and radiation oncologist, within 7 days of hospital discharge to further evaluate his back pain for palliative treatment Back pain -completed radiation -prn pain meds -no signs of cord compression -Did not complain of saddle anesthesia, bilateral lower extremity weakness. -MRI of the thoracic and lumbar spine were ordered but the patient wanted to go home without any further evaluation. Since his pain was controlled on as needed morphine With a bowel regimen PHYSICAL EXAMINATION ON DISCHARGE: VITAL SIGNS: Please see below. GEN:no distress no pallor, no cyanosis, use of respiratory accessory muscles or conversational dyspnea HEENT:no stridor no jvd moist mm LUNGS:CTAB, air entry is equal bilaterally. No wheezing, rales or rhonchi. No other adventitious breath sounds HEART:S1S2 RRR . Nondisplaced point of maximal impulse no carotid bruits ABD:+bs hypoactive [id number] soft nontender no rebound EXT:no edema or cyanosis. NEUROLOGIC: Awake, alert, oriented 3. Face is symmetric. Tongue is midline. No pronator drift. Pupils equally round, reactive to light and accommodation. Extraocular muscles are intact. No dysmetria on finger to nose testing. Gait is not ataxic. Motor function is 5 out of 54 extremities. Negative Babinski bilaterally No paresthesias or sensory disturbance.. DTRs are intact LABORATORY DATA: Please see below. IMAGING: Exam: CT Abdomen And Pelvis With Contrast Exam date and time: 09/01/2020 8:21 PM Age: 30 years old Clinical indication: Abdominal pain; Additional info: Llq/suprapubic pain TECHNIQUE: Imaging protocol: Computed tomography of the abdomen and pelvis with intravenous contrast. Radiation optimization: All CT scans at this facility use at least one of these dose optimization techniques: automated exposure control; mA and/or kV adjustment per patient size (includes targeted exams where dose is matched to clinical indication); or iterative reconstruction. Contrast material: ISOVUE 370; Contrast volume: 100 ml; Contrast route: INTRAVENOUS (IV); COMPARISON: CR Hip, Ap,Lat RIGHT 08/27/2020 12:38 AM FINDINGS: Liver: Multiple hypoattenuating nodules demonstrated throughout the liver, the largest in the inferior aspect of the right hepatic lobe measuring up to 3.1 cm. All measure soft tissue density and are concerning for metastatic disease. Gallbladder and bile ducts: Normal. No calcified stones. No ductal dilation. Pancreas: Normal. No ductal dilation. Spleen: Normal. No splenomegaly. Adrenal glands: Normal. No mass. Kidneys and ureters: 9 mm simple cyst left kidney. Stomach and bowel: There is increased feces throughout the colon consistent with constipation. Multiple dilated loops of small bowel demonstrated concerning for small bowel obstruction. Appendix: No evidence of appendicitis. Intraperitoneal space: Unremarkable. No free air. No significant fluid collection. Vasculature: Unremarkable. No abdominal aortic aneurysm. Lymph nodes: Unremarkable. No enlarged lymph nodes. Urinary bladder: Unremarkable as visualized. Reproductive: Unremarkable as visualized. Bones/joints: Unremarkable. No acute fracture. Soft tissues: Unremarkable. IMPRESSION: 1. Multiple hypoattenuating nodules demonstrated throughout the liver, the largest in the inferior aspect of the right hepatic lobe measuring up to 3.1 cm. All measure soft tissue density and are concerning for metastatic disease. 2. There is increased feces throughout the colon consistent with constipation. 3. Multiple dilated loops of small bowel demonstrated concerning for small bowel obstruction. 4. 9 mm simple cyst left kidney. COMMENTS: Consistent with the [employer]'s Incidental Findings Committee white paper (J Am John Radiol 2018): Any incidental renal lesion less than 1 cm or classified as too small to characterize, or any incidental cystic renal lesion characterized as simple-appearing, is likely benign. No follow-up imaging is recommended for these lesions per consensus recommendations based on imaging criteria. Electronically signed by: Akshat Abdullahi On 09/01/2020 20:52:57 PM 09/02/20 AXR TECHNIQUE: Supine view of the abdomen and pelvis. FINDINGS: Bowel gas pattern is relatively nonspecific and without evidence for obstruction or perforation. Contrast material identified within the colon consistent with recent CT exam. No again a megaly. No obvious foreign body. Skeletal structures are intact. IMPRESSION: Nonspecific bowel gas pattern. <Electronically signed by Rajiv Camilo > 09/02/20 0807 TIME SPENT ON DISCHARGE: 30 minutes. Vital Signs/I&Os Vital Signs Date Time Temp Pulse Resp B/P (MAP) Pulse Ox O2 Delivery O2 Flow Rate FiO2 09/03/20 10:49 18 09/03/20 06:00 98.1 107 135/95 (108) 100 Room Air I&O- Last 24 Hours up to 6 AM 09/03/20 06:00 Intake Total 1180 ml Output Total 2925 ml Balance -1745 ml Discharge Medications Scheduled Alvimopan (Entereg) 12 Mg Capsule, 12 MG PO BID Lactulose (Lactulose) 10 Gm/15 Ml Solution, 15 ML PO BID Morphine Sulfate (Ms Contin) 30 Mg Tablet.er, 1 TAB PO BID for pain Polyethylene Glycol 3350 (Polyethylene Glycol 3350) 17 Gm Powd.pack, 1 PKT PO BID Sennosides/Docusate Sodium (Senna Plus Tablet) 1 Each Tablet, 2 TAB PO BID Scheduled PRN Magnesium Hydroxide (Milk of Magnesia) 400 Mg/5 Ml Oral.susp, 30 ML PO Q4HP PRN for CONSTIPATION Morphine Sulfate (Morphine Sulfate) 15 Mg Tablet, 1 TAB PO QIDP PRN for pain Allergies Coded Allergies: Penicillins (Verified Allergy, Intermediate, RASH & SWELLING, 06/27/20) RANDAL WU MD Sep 03, 2020 11:11
== END 2020-09-03 13:10 | disposition home or self-care (01) | DRG 247 ==
LOC: EDBD 17:23 → M ED 17:23 → M MSPAV 09-02 00:38 → M ED 09-02 00:57 → M MSPAV 09-02 01:55
PROVIDERS: ADMIT Family Medicine; ATTEND General Practice
DX: K56.609 Unspecified intestinal obstruction, unspecified as to partial versus complete obstruction (principal); C78.7 Secondary malignant neoplasm of liver and intrahepatic bile duct; C79.51 Secondary malignant neoplasm of bone; C08.9 Malignant neoplasm of major salivary gland, unspecified; K59.00 Constipation, unspecified; Z79.899 Other long term (current) drug therapy; Z88.0 Allergy status to penicillin

== ENCOUNTER 2020-09-05 14:39 | Emergency (ER) | payer OTHER ==
[~2020-09-05] VITALS: Ht 167.6 cm; Wt 62.7 kg
[~2020-09-05 14:39] MED LIST changes: +ACET-897 PO; +ALVI12CA PO; +ASPI325T53 PO; +CYCL-707 PO; +LACT20EL PO; +MOM30SS2 PO; +MORP15TA2 PO; +MS C30TA6 PO; +PATIENT COMMENT; +PEG1POW PO; +SENN-52 PO
[2020-09-05 17:17] VITALS: BP 156/99
== END 2020-09-05 17:05 | disposition left against medical advice (07) ==
LOC: M ED 14:39
DX: R13.10 Dysphagia, unspecified (principal); C08.9 Malignant neoplasm of major salivary gland, unspecified; C78.7 Secondary malignant neoplasm of liver and intrahepatic bile duct; C79.51 Secondary malignant neoplasm of bone; I10 Essential (primary) hypertension; I25.2 Old myocardial infarction; Z88.0 Allergy status to penicillin; Z79.899 Other long term (current) drug therapy; Z53.9 Procedure and treatment not carried out, unspecified reason